=== PATIENT | male | born 1935 | race Caucasian/White ===

== ENCOUNTER 2016-11-27 09:30 | Outpatient (CLI) | payer MEDICARE | END 2016-11-27 09:31 | disposition EMS.NT | DX: R53.1 Weakness (principal); W18.30XA Fall on same level, unspecified, initial encounter; Y92.019 Unspecified place in single-family (private) house as the place of occurrence of the external cause ==

== ENCOUNTER 2018-02-22 23:47 | Outpatient (CLI) | payer MEDICARE, OTHER | END 2018-02-22 23:48 | disposition short-term general hospital (02) | LOC: EMS 23:47 | PROVIDERS: ATTEND Surgery | DX: R53.1 Weakness (principal) | CPT/HCPCS: A0425; A0427 ==

== ENCOUNTER 2018-03-16 08:00 | Outpatient (CLI) | payer MEDICARE, OTHER ==
[2018-03-16 10:03] LABS: BASOPHILS # (AUTO) 0.1 10^3/uL (0.0-0.1); BASOPHILS % (AUTO) 1.1 %; EOSINOPHILS # (AUTO) 0.3 10^3/uL (0.0-0.7); EOSINOPHILS % (AUTO) 5.4 %; HGB - HEMOGLOBIN 10.3 g/dL (14.0-18.0); LYMPHOCYTES # (AUTO) 2.2 10^3/uL (1.5-3.5); LYMPHOCYTES % (AUTO) 42.9 %; MEAN CORPUSCULAR HEMOGLOBIN 25.1 pg (27.0-31.0); MEAN CORPUSCULAR HGB CONC 31.2 g/dL (32.0-36.0); MEAN CORPUSCULAR VOLUME 80.4 fL (80.0-94.0); MEAN PLATELET VOLUME 8.3 fL (7.4-11.4); MONOCYTES # (AUTO) 0.5 10^3/uL (0.0-1.0); MONOCYTES % (AUTO) 10.6 %; PLT - PLATELET COUNT 237 10^3/uL (130-450); RED BLOOD COUNT 4.13 10^6/uL (4.70-6.10); RED CELL DISTRIBUTION WIDTH 17.2 % (12.0-15.0)
[2018-03-16 10:20] LABS: CALCIUM 9.5 mg/dL (8.5-10.3); CREATININE 1.2 mg/dL (0.6-1.2)
== END 2018-03-16 08:01 ==
LOC: LAB.R 08:00
DX: E11.65 Type 2 diabetes mellitus with hyperglycemia (principal); I63.9 Cerebral infarction, unspecified
CPT/HCPCS: 80048; 82728; 85025

== ENCOUNTER 2018-03-18 15:52 | Outpatient (CLI) | payer MEDICARE, OTHER | END 2018-03-18 15:53 | disposition critical access hospital (66) | LOC: EMS 15:52 | PROVIDERS: ATTEND Surgery | DX: R56.9 Unspecified convulsions (principal); R47.81 Slurred speech | CPT/HCPCS: A0425; A0429 ==

== ENCOUNTER 2018-03-18 16:00 | Emergency (ER) | payer MEDICARE, OTHER ==
--- NOTE | 2018-03-18 16:13 | ED Physician Documentation ---
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 The paperwork that accompanies him I reviewed, there was a mention that he had had post seizure epilepsy and was maintained on some dramatic medication for epilepsy, however this was not on his med list either in that H&P nor on his med list from the snf. Today he started having right-sided periorbital seizures and right arm focal seizures not associated with loss of consciousness or other specific complaints. No headaches.) Review of Systems Ten Systems: 10 systems reviewed and negative Constitutional: denies: Fever, Chills PD PAST MEDICAL HISTORY - Past Medical History Past Medical History: Yes Cardiovascular: Atrial fibrillation Neuro: CVA - Present Medications Home Medications: Ambulatory Orders Medication Instructions Recorded Confirmed Baclofen [Baclofen] 03/18/18 Digoxin [Digoxin] 03/18/18 Furosemide [Furosemide] 03/18/18 Gemfibrozil [Lopid] 03/18/18 Metoprolol Succinate/Hctz 03/18/18 03/18/18 [Metoprolol ER-Hctz 100-12.5 mg] Potassium Chloride [Potassium 03/18/18 Chloride] Warfarin [Coumadin] 03/18/18 diazePAM [Valium] 03/18/18 - Allergies Allergies/Adverse Reactions: Allergies Allergy/AdvReac Type Severity Reaction Status Date / Time atorvastatin Allergy Unknown Verified 03/18/18 16:22 gabapentin Allergy Unknown Verified 03/18/18 16:23 Influenza Virus Vaccines Allergy Unknown Verified 03/18/18 16:23 simvastatin Allergy Unknown Verified 03/18/18 16:23 PD ED PE NORMAL - Vitals Vital signs reviewed: Yes - General General: Alert and oriented X 3, No acute distress, Well developed/nourished - HEENT HEENT: PERRL, Other (Large pupil,) - Neck Neck: Supple, no meningeal sign, No bony TTP - Cardiac Cardiac: RRR, No murmur - Respiratory Respiratory: No respiratory distress, Clear bilaterally - Abdomen Abdomen: Soft, Non tender - Back Back: No CVA TTP, No spinal TTP - Derm Derm: Normal color, Warm and dry - Extremities Extremities: No edema, No calf tenderness / cord - Neuro Neuro: Alert and oriented X 3, Normal speech Eye Opening: Spontaneous Motor: Obeys Commands Verbal: Oriented GCS Score: 15 Results - Vitals Vitals: Vital Signs - 24 hr 03/18/18 03/18/18 03/18/18 16:02 17:59 18:56 Temperature 36.3 C L 36.7 C Heart Rate 76 71 71 Respiratory 20 21 22 Rate Blood Pressure 171/108 H 149/102 H 143/83 H O2 Saturation 97 99 Oxygen O2 Source Room air - EKG (time done) 1612 Rate: Rate (enter#) (71) Rhythm: Atrial flutter, Paced Computer interpretation: Agree with computer - Labs Labs: Laboratory Tests 03/18/18 03/18/18 03/18/18 16:21 16:21 16:21 WBC 5.5 RBC 4.19 L Hgb 10.5 L Hct 33.5 L MCV 80.0 MCH 25.1 L MCHC 31.4 L RDW 17.3 H Plt Count 229 MPV 7.4 Neut # (Auto) 2.5 Lymph # (Auto) 2.3 [place] # (Auto) 0.6 Eos # (Auto) 0.2 Baso # (Auto) 0.0 Absolute Nucleated RBC 0.00 Nucleated RBC % 0.0 PT 19.9 H INR 1.8 H Sodium 137 Potassium 4.3 Chloride 105 Carbon Dioxide 24 Anion Gap 8.0 BUN 41 H Creatinine 1.5 H Estimated GFR (MDRD) 45 L Glucose 112 H Calcium 9.4 Magnesium 2.3 Total Bilirubin 0.7 AST 28 ALT 14 Alkaline Phosphatase 79 Total Protein 7.3 Albumin 3.4 Globulin 3.9 Albumin/Globulin Ratio 0.9 L Lipase 70 H Last Dose Date Last Dose Time Digoxin 03/18/18 16:21 WBC RBC Hgb Hct MCV MCH MCHC RDW Plt Count MPV Neut # (Auto) Lymph # (Auto) [place] # (Auto) Eos # (Auto) Baso # (Auto) Absolute Nucleated RBC Nucleated RBC % PT INR Sodium Potassium Chloride Carbon Dioxide Anion Gap BUN Creatinine Estimated GFR (MDRD) Glucose Calcium Magnesium Total Bilirubin AST ALT Alkaline Phosphatase Total Protein Albumin Globulin Albumin/Globulin Ratio Lipase Last Dose Date UNKNOWN Last Dose Time UNKNOWN Digoxin 0.7 - Rads (name of study) CT Head Radiology: EMP read contemporaneously (Areas of Encephalomalacia consistent with prior strokes, no acute disease.) PD MEDICAL DECISION MAKING - ED course ED course: While we are talking he starts having periorbital spasm and cannot open his eyes , it is much more on the right than the left but does seem to cross the midline. He is conscious throughout this and cannot control it. 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 Case was discussed by phone with the on-call neurologist in [place] who recommended Keppra 1000 mg now and 500 mg p.o. twice daily ongoing. I also updated Flor Ovalle who is on-call for [place] and she will write the orders for the Keppra. - Sepsis Event Vital Signs: Vital Signs - 24 hr 03/18/18 03/18/18 03/18/18 16:02 17:59 18:56 Temperature 36.3 C L 36.7 C Heart Rate 76 71 71 Respiratory 20 21 22 Rate Blood Pressure 171/108 H 149/102 H 143/83 H O2 Saturation 97 99 Oxygen O2 Source Room air Departure - Departure Disposition: 01 Home, Self Care Clinical Impression: Focal seizures, Subtherapeutic international normalized ratio (INR) Condition: Good Record reviewed to determine appropriate education?: Yes Instructions: ED Seizure Recurrent Comments: He should start Keppra 500 mg p.o. twice daily. INR was only 1.8 today and he was given an extra 5 mg of Coumadin here tonight. Discharge Date/Time: 03/18/18 19:16
[2018-03-18 16:26] LABS: BASOPHILS % (AUTO) 0.7 %; EOSINOPHILS # (AUTO) 0.2 10^3/uL (0.0-0.7); EOSINOPHILS % (AUTO) 3.3 %; HGB - HEMOGLOBIN 10.5 g/dL (14.0-18.0); LYMPHOCYTES # (AUTO) 2.3 10^3/uL (1.5-3.5); LYMPHOCYTES % (AUTO) 41.3 %; MEAN CORPUSCULAR HEMOGLOBIN 25.1 pg (27.0-31.0); MEAN CORPUSCULAR HGB CONC 31.4 g/dL (32.0-36.0); MEAN PLATELET VOLUME 7.4 fL (7.4-11.4); MONOCYTES # (AUTO) 0.6 10^3/uL (0.0-1.0); MONOCYTES % (AUTO) 10.3 %; NEUTROPHILS # (AUTO) 2.5 10^3/uL (1.5-6.6); NEUTROPHILS % (AUTO) 44.4 %; PLT - PLATELET COUNT 229 10^3/uL (130-450); RED BLOOD COUNT 4.19 10^6/uL (4.70-6.10); RED CELL DISTRIBUTION WIDTH 17.3 % (12.0-15.0); WHITE BLOOD COUNT 5.5 x10^3/uL (4.8-10.8)
[2018-03-18 16:30] LABS: INR 1.8 (0.8-1.2); PT - PROTHROMBIN TIME 19.9 secs (9.9-12.6)
[2018-03-18 16:38] LABS: ALBUMIN 3.4 g/dL (3.2-5.5); ALBUMIN/GLOBULIN RATIO 0.9 (1.0-2.2); BILIRUBIN,TOTAL 0.7 mg/dL (0.2-1.0); CALCIUM 9.4 mg/dL (8.5-10.3); CREATININE 1.5 mg/dL (0.6-1.2); MAGNESIUM 2.3 mg/dL (1.7-2.8); TOTAL PROTEIN 7.3 g/dL (6.7-8.2)
[2018-03-18 16:41] LABS: DIGOXIN 0.7 ng/mL
[2018-03-18] MEDS ORDERED: levETIRAcetam 250 MG TABLET PO STA (18:37)
[2018-03-18] MEDS ORDERED: WARFARIN 5 MG TABLET PO STA (18:50)
[2018-03-18 18:59] VITALS: BP 143/83
--- NOTE | 2018-03-18 19:01 | CT Report ---
Procedure Date: 03/18/2018 Accession Number: [id number] / [id number] Procedure: CT - Head W/O CPT Code: FULL RESULT: EXAM: CT HEAD EXAM DATE: 03/18/2018 06:08 PM. CLINICAL HISTORY: NEW SEIZURES. COMPARISON: None. TECHNIQUE: Multiaxial CT images were obtained from the foramen magnum to the vertex. Reformats: Coronal. IV contrast: None. In accordance with CT protocol optimization, one or more of the following dose reduction techniques were utilized for this exam: automated exposure control, adjustment of mA and/or KV based on patient size, or use of iterative reconstructive technique. FINDINGS: Parenchyma: No intracranial hemorrhage. No mass effect, midline shift or evidence of a mass. Moderate encephalomalacia in keeping with chronic infarcts present involving the right and left posterior frontal/parietal lobes near the vertex. Mild diffuse chronic microangiopathic white matter changes are present. Lim-white matter differentiation is otherwise well-maintained without evidence of acute cortical infarct. Extraaxial Spaces: Normal for age. No subdural or epidural collections identified. Ventricles: Normal in configuration. Mildly prominent, though symmetric with the sulci, in keeping with age-related volume loss. Sinuses and Orbits: Imaged paranasal sinuses, orbits, and mastoids show no significant abnormality. Bones: No evidence of fracture or calvarial defect. Other: Intracranial vascular calcifications noted. IMPRESSION: No acute intracranial abnormality with chronic findings as above including old bilateral frontoparietal infarcts. [facility]
== END 2018-03-18 19:16 | disposition home or self-care (01) ==
LOC: EDUNIT# → ED 16:00
DX: G40.109 Localization-related (focal) (partial) symptomatic epilepsy and epileptic syndromes with simple partial seizures, not intractable, without status epilepticus (principal); R79.1 Abnormal coagulation profile; I69.351 Hemiplegia and hemiparesis following cerebral infarction affecting right dominant side; I69.354 Hemiplegia and hemiparesis following cerebral infarction affecting left non-dominant side; I48.92 Unspecified atrial flutter; Z79.01 Long term (current) use of anticoagulants
CPT/HCPCS: 36415; 70450; 80053; 80162; 83690; 83735; 85025; 85610; 93005; 99284; A9270

== ENCOUNTER 2018-10-10 17:41 | Outpatient (CLI) | payer MEDICARE, OTHER | END 2018-10-10 17:42 | disposition short-term general hospital (02) | LOC: EMS 17:41 | PROVIDERS: ATTEND Surgery | DX: R53.1 Weakness (principal) | CPT/HCPCS: A0425; A0429; A0888 ==